=== PATIENT | female | born 1935 | race Caucasian/White ===

== ENCOUNTER 2020-01-31 20:31 | Observation (INO) | payer MEDICARE, OTHER ==
[~2020-01-31] VITALS: Ht 149.9 cm; Wt 94.8 kg
[~2020-01-31 20:31] MED LIST: CHOL10002 PO; DOXE10 PO; FISH1000 PO; HCTZ; HYDRA25 PO; LEVSOD175 PO; LEVSOD25; LISI20; LISI20 PO; MULVITMIND PO; OMEP20ER PO; OXAP600
[2020-01-31] MEDS ORDERED: WARF1 PO (20:40)
[2020-01-31] MEDS ORDERED: Simvastatin10 MG PO (20:42)
[2020-01-31] MEDS ORDERED: TRAZ50 (20:42)
[2020-01-31] MEDS ORDERED: METO100ER PO (20:42)
[2020-01-31] MEDS ORDERED: MAGSULP TOP (20:43)
[2020-01-31 20:55] LABS: BASOPHILS ABSOLUTE AUTO 0.05 K/mm3 (0.00-0.23); BASOPHILS PERCENT AUTO 0 % (0-2); EOSINOPHILS ABSOLUTE AUTO 0.14 K/mm3 (0.00-0.68); EOSINOPHILS PERCENT AUTO 1 % (0-6); Hematocrit 41.4 % (33.0-51.0); IMMATURE GRAN ABSOLUTE AUTO 0.05 K/mm3 (0.00-0.10); IMMATURE GRAN PERCENT AUTO 0 % (0-1); LYMPHOCYTES ABSOLUTE AUTO 4.85 K/mm3 (0.84-5.20); LYMPHOCYTES PERCENT AUTO 39 % (21-46); MONOCYTES ABSOLUTE AUTO 0.82 K/mm3 (0.16-1.47); MONOCYTES PERCENT AUTO 7 % (4-13); Mean Corpuscular HGB Conc 31.4 g/dL (31.5-36.5); Mean Corpuscular Volume 96 fL (80-100); Mean Platelet Volume 12.2 fL (9.1-12.4); NEUTROPHILS ABSOLUTE AUTO 6.49 K/mm3 (1.96-9.15); NEUTROPHILS PERCENT AUTO 52 % (41-73); Platelet Count 231 K/mm3 (150-400); RDW Coefficient Variation 13.4 % (11.7-14.2); RDW Standard Deviation 47.7 fL (35.1-46.3); Red Blood Cell Count 4.33 M/mm3 (3.80-5.20)
[2020-01-31 21:10] LABS: International Normalized Ratio 1.64; Prothrombin Time Results 17.1 Sec (9.7-11.5)
[2020-01-31 21:20] LABS: Alanine Aminotransfer (ALT/SGP 19 U/L (12-78); Albumin, Blood 3.4 g/dL (3.4-5.0); Albumin/Globulin Ratio 0.8 (0.8-1.8); Alk Phos 103 U/L (50-136); Anion Gap 7 mmol/L (6-16); Aspartate Aminotrans (AST/SGOT 37 U/L (12-37); Bilirubin, Total 0.5 mg/dL (0.1-1.0); Blood Urea Nitrogen 24 mg/dL (8-24); Bun/Creatinine Ratio 21.2 (12.0-20.0); CO2, Blood 25 mmol/L (21-32); Calcium, Blood 9.3 mg/dL (8.5-10.1); Chloride, Blood 105 mmol/L (98-108); Creatinine, Blood 1.13 mg/dL (0.40-1.00); Globulin, Blood 4.5 g/dL (2.2-4.0); Glomerular Filtration Rate 49 (60-); Glucose, Blood 92 mg/dL (70-99); Potassium, Blood 5.7 mmol/L (3.5-5.5); Sodium, Blood 137 mmol/L (136-145); Total Protein, Blood 7.9 g/dL (6.4-8.2); Troponin I <0.015 ng/mL (0.000-0.040)
[2020-01-31 22:53] LABS: Magnesium, Blood 2.6 mg/dL (1.6-2.4)
[2020-01-31 23:18] LABS: Bun/Creatinine Ratio 22.4 (12.0-20.0); Calcium, Blood 8.7 mg/dL (8.5-10.1); Creatinine, Blood 1.07 mg/dL (0.40-1.00); Potassium, Blood 5.1 mmol/L (3.5-5.5)
[2020-02-01 05:29] LABS: BASOPHILS ABSOLUTE AUTO 0.05 K/mm3 (0.00-0.23); BASOPHILS PERCENT AUTO 0 % (0-2); EOSINOPHILS ABSOLUTE AUTO 0.01 K/mm3 (0.00-0.68); EOSINOPHILS PERCENT AUTO 0 % (0-6); Hematocrit 36.1 % (33.0-51.0); Hemoglobin 11.8 g/dL (11.5-16.0); IMMATURE GRAN ABSOLUTE AUTO 0.04 K/mm3 (0.00-0.10); IMMATURE GRAN PERCENT AUTO 0 % (0-1); LYMPHOCYTES ABSOLUTE AUTO 2.16 K/mm3 (0.84-5.20); LYMPHOCYTES PERCENT AUTO 18 % (21-46); MONOCYTES ABSOLUTE AUTO 0.95 K/mm3 (0.16-1.47); MONOCYTES PERCENT AUTO 8 % (4-13); Mean Corpuscular HGB 31.2 pg (26.0-34.0); Mean Corpuscular HGB Conc 32.7 g/dL (31.5-36.5); Mean Corpuscular Volume 96 fL (80-100); Mean Platelet Volume 11.8 fL (9.1-12.4); NEUTROPHILS ABSOLUTE AUTO 9.08 K/mm3 (1.96-9.15); NEUTROPHILS PERCENT AUTO 74 % (41-73); Platelet Count 198 K/mm3 (150-400); RDW Coefficient Variation 13.5 % (11.7-14.2); RDW Standard Deviation 47.7 fL (35.1-46.3); Red Blood Cell Count 3.78 M/mm3 (3.80-5.20); White Blood Cell Count 12.29 K/mm3 (4.00-11.30)
[2020-02-01 05:39] LABS: International Normalized Ratio 1.78; Prothrombin Time Results 18.4 Sec (9.7-11.5)
[2020-02-01 05:43] LABS: Albumin/Globulin Ratio 0.8 (0.8-1.8); Bilirubin, Total 0.5 mg/dL (0.1-1.0); Bun/Creatinine Ratio 20.6 (12.0-20.0); Calcium, Blood 8.8 mg/dL (8.5-10.1); Creatinine, Blood 1.02 mg/dL (0.40-1.00); Globulin, Blood 3.9 g/dL (2.2-4.0); Potassium, Blood 5.7 mmol/L (3.5-5.5); Total Protein, Blood 6.9 g/dL (6.4-8.2)
[2020-02-01 05:51] LABS: CPK Creatine Kinase 48 U/L (26-193); Troponin I <0.015 ng/mL (0.000-0.040)
--- NOTE | 2020-02-01 06:01 | NUR ---
SHIFT SUMMARY PT ARRIVED FROM ED VIA STRETCHER AND SELF TRANFERED TO BED APPROXIMATELY 2350; PT A&O X 4; VSS; STATED SHE WAS VERY TIRED; STATES HX OF AFIB; O2 SATS >93; PT AMBULATES FOR BRP W/ NO GAIT DISTURBANCES NOTED; ORIENTED TO UNIT SAFETY / PROTOCOL / CALL LIGHT; THIS AM HR INCREASED AND SUSTAINED 120'S - 130'S; NOTIFIED; NEW ORDERS GIVEN; REFER TO EMAR; CALL LIGHT IN REACH; BED IN LOWEST POSITION; WILL CONTINUE TO MONITOR CLOSELY UNTIL HAND OFF TO DAY SHIFT RN.
[2020-02-01] MEDS ORDERED: LEVOTHYROXINE112 MCG (07:54)
[2020-02-01 12:55] LABS: Bun/Creatinine Ratio 19.2 (12.0-20.0); Creatinine, Blood 0.99 mg/dL (0.40-1.00); Potassium, Blood 5.7 mmol/L (3.5-5.5)
[2020-02-01 13:05] LABS: CPK Creatine Kinase 176 U/L (26-193); Troponin I <0.015 ng/mL (0.000-0.040)
[2020-02-01] MEDS ORDERED: AMLO5 PO (16:48)
[2020-02-01 17:12] LABS: Bun/Creatinine Ratio 17.1 (12.0-20.0); Calcium, Blood 9.1 mg/dL (8.5-10.1); Creatinine, Blood 1.17 mg/dL (0.40-1.00); Potassium, Blood 4.2 mmol/L (3.5-5.5)
--- NOTE | 2020-02-01 17:17 | NUR ---
PATIENT PROVIDED DISCHARGE INFO REGARDING REASONS TO RETURN TO THE HOSPITAL, FOLLOW UP PLANS AND MEDICATION INFORMATION. THIS RN EDUCATED THE PATIENT ON THE RISKS OF ELEVATED POTASSIUM LEVEL INCLUDING ARRHYTHMIA AND CARDIAC ARREST. PATIENT SHOWED NO SIGNS OF ACUTE DISTRESS, DENIED CHEST PAIN THIS SHIFT. DR. LITTLE STATED IT WAS OK TO DISCHARGE PATIENT BEFORE MOST UP TO DATE K+ RESULT WAS IN. THIS RN ENCOURAGED PATIENT TO WAIT TO LEAVE UNTIL LATEST K+ LEVEL AVAILABLE, PATIENT STATED SHE WANTED TO LEAVE REGARDLESS. THIS RN OFFERED TO CALL PATIENT WHEN LAB RESULT IS IN, STATED THAT PATIENT WOULD BE INSTRUCTED TO RETURN TO THE ER IF POTASSIUM LEVEL ELEVATED OUTSIDE OF NORMAL RANGE. LATEST LAB RESULT AFTER PATIENT LEFT WAS 4.2. ATTEMPTED TO CALL THE PATIENT, NO ANSWER AT THE PATIENT'S LISTED PHONE NUMBER. ATTEMPTED TO CALL THE PATIENT'S DAUGHTER AT THE NUMBER ON CHART, WENT STRAIGHT TO VOICEMAIL. PRIOR TO DISCHARGE THIS RN ENCOURAGED PATIENT TO SIGN UP FOR THE PATIENT PORTAL IN ORDER TO VIEW INFORMATION FROM THIS ADMISSION.
== END 2020-02-01 17:05 | disposition home or self-care (01) ==
LOC: ER 20:31 → PCU 20:32
PROVIDERS: Emergency Medicine; Internal Medicine; ADMIT Internal Medicine
DX: I48.91 Unspecified atrial fibrillation (principal); E87.5 Hyperkalemia; I12.9 Hypertensive chronic kidney disease with stage 1 through stage 4 chronic kidney disease, or unspecified chronic kidney disease; N18.30 Chronic kidney disease, stage 3 unspecified; I77.4 Celiac artery compression syndrome; E03.9 Hypothyroidism, unspecified; M19.90 Unspecified osteoarthritis, unspecified site; K21.9 Gastro-esophageal reflux disease without esophagitis; E78.5 Hyperlipidemia, unspecified; Z79.01 Long term (current) use of anticoagulants; Z79.899 Other long term (current) drug therapy; Z91.14 Patient's other noncompliance with medication regimen; Z23 Encounter for immunization
CPT/HCPCS: 36415; 71045; 71275; 74175; 80048; 80053; 82550; 82947; 83735; 83880; 84484; 85025; 85610; 85730; 93005; 93010; 96374-59; 96375-59; 99285-25; A9270; J0610; J1815; J1940; J2405; J3010; J7030; Q9967

== ENCOUNTER 2020-03-17 21:04 | Inpatient (IN) | payer MEDICARE, OTHER ==
[~2020-03-17] VITALS: Ht 149.9 cm; Wt 91.8 kg
[~2020-03-17 21:04] MED LIST changes: +AMLO5 PO; -CHOL10002 PO; +LEVOTHYROXINE112 MCG PO; +MAGSULP TOP; +METO100ER PO; +Simvastatin10 MG PO; +TRAZ50 PO; +VITAMIN D31000 UNI1 PO; +WARF1 PO
[2020-03-17 22:00] LABS: BASOPHILS ABSOLUTE AUTO 0.06 K/mm3 (0.00-0.23); BASOPHILS PERCENT AUTO 1 % (0-2); EOSINOPHILS ABSOLUTE AUTO 0.17 K/mm3 (0.00-0.68); EOSINOPHILS PERCENT AUTO 2 % (0-6); Hematocrit 41.7 % (33.0-51.0); Hemoglobin 13.1 g/dL (11.5-16.0); IMMATURE GRAN ABSOLUTE AUTO 0.03 K/mm3 (0.00-0.10); IMMATURE GRAN PERCENT AUTO 0 % (0-1); LYMPHOCYTES ABSOLUTE AUTO 2.23 K/mm3 (0.84-5.20); LYMPHOCYTES PERCENT AUTO 28 % (21-46); MONOCYTES ABSOLUTE AUTO 0.42 K/mm3 (0.16-1.47); MONOCYTES PERCENT AUTO 5 % (4-13); Mean Corpuscular HGB 29.8 pg (26.0-34.0); Mean Corpuscular HGB Conc 31.4 g/dL (31.5-36.5); Mean Corpuscular Volume 95 fL (80-100); Mean Platelet Volume 11.6 fL (9.1-12.4); NEUTROPHILS ABSOLUTE AUTO 4.95 K/mm3 (1.96-9.15); NEUTROPHILS PERCENT AUTO 63 % (41-73); Platelet Count 206 K/mm3 (150-400); RDW Coefficient Variation 13.7 % (11.7-14.2); RDW Standard Deviation 48.3 fL (35.1-46.3); Red Blood Cell Count 4.39 M/mm3 (3.80-5.20); White Blood Cell Count 7.86 K/mm3 (4.00-11.30)
[2020-03-17 22:17] LABS: Alanine Aminotransfer (ALT/SGP 17 U/L (12-78); Albumin, Blood 3.2 g/dL (3.4-5.0); Albumin/Globulin Ratio 0.7 (0.8-1.8); Alk Phos 101 U/L (50-136); Anion Gap 6 mmol/L (6-16); Aspartate Aminotrans (AST/SGOT 14 U/L (12-37); Bilirubin, Total 0.3 mg/dL (0.1-1.0); Blood Urea Nitrogen 14 mg/dL (8-24); Bun/Creatinine Ratio 17.5 (12.0-20.0); CO2, Blood 23 mmol/L (21-32); Calcium, Blood 9.2 mg/dL (8.5-10.1); Chloride, Blood 111 mmol/L (98-108); Globulin, Blood 4.4 g/dL (2.2-4.0); Glomerular Filtration Rate >60 (60-); Glucose, Blood 118 mg/dL (70-99); Potassium, Blood 3.9 mmol/L (3.5-5.5); Sodium, Blood 140 mmol/L (136-145); Total Protein, Blood 7.6 g/dL (6.4-8.2); Troponin I <0.015 ng/mL (0.000-0.040)
[2020-03-17 23:56] LABS: International Normalized Ratio 2.69; Prothrombin Time Results 27.2 Sec (9.7-11.5)
--- NOTE | 2020-03-18 03:09 | NUR ---
PATIENT IS A NEW ADMIT FROM THE ED. FOUR PERSON TRANSFER FROM [facility] TO BED. AXOX 4 AND ON 3L O2 NC AND RA BASELINE. PATIENT ANXIOUS ON ADMIT. ORIENTED TO ROOM AND CALL LIGHT SYSTEM. REPORTS WANTED HER TRAZODONE FOR INSOMNIA. DENIES CHEST PAIN AND N/V. PATIENT READY FOR SLEEP.
--- NOTE | 2020-03-18 03:13 | NUR ---
TELEMETRY PLACED AND TECH REPORTS A-FIB AVERAGE IN THE 80'S. RT IN TO SEE PATIENT AND REFUSING CPAP AND SIGNED REFUSAL FORM, IN CHART. REPORTS HER DAUGHTER WILL BE IN TOMORROW AFTERNOON.
--- NOTE | 2020-03-18 04:59 | NUR ---
SHIFT SUMMARY PATIENT HAD NO ACUTE CHANGES OBSERVED. AXOX 4 AND ANXIOUS ON ADMIT. SBA TO BR ON 3L O2 NC AND RA BASELINE. RT REPORTED SHE REFUSED HER CPAP AND SIGNED REFUSAL FORM AND IN CHART. PIVS REMAIN INTACT. NURSE REVIEWER REPORTS A-FIB AVERAGE 80'S. DENIES CHEST PAIN AND N/V. SOB W/EXERTION. TAKES MEDICATION WHOLE WITH WATER. TRAZODONE 50 MG GIVEN FOR INSOMNIA. VSS/AFEBRILE. REPORTS LIVES WITH HER DAUGHTER WHO WILL BE BACK THIS AFTERNOON. CALL LIGHT IN REACH. BED IN LOWEST POSITION. WILL CONTINUE TO MONITOR UNTIL DAY SHIFT NURSE ASSUMES CARE.
[2020-03-18] MEDS ORDERED: FOLI1 PO (07:33)
[2020-03-18] MEDS ORDERED: HYDRA25 PO (07:34)
[2020-03-18] MEDS ORDERED: LISI20 PO (07:35)
[2020-03-18] MEDS ORDERED: Coumadin1 MG PO (07:40)
[2020-03-18] MEDS ORDERED: Coumadin5 MG PO (07:41)
[2020-03-18 11:25] LABS: Influenza A, PCR NEGATIVE (NEGATIVE); Influenza B, PCR NEGATIVE (NEGATIVE); Resp Syncytial Virus, PCR NEGATIVE (NEGATIVE); SARS-Cov-2 (COVID-19) PCR, MMC NEGATIVE (NEGATIVE)
--- NOTE | 2020-03-18 15:31 | NUR ---
0930 turned o2 down to 2l , pt [facility] , o2 >96% 1500 turned o2 down to 1l. pt [facility]. o2 94%
--- NOTE | 2020-03-18 17:07 | NUR ---
ADMIT: 03/18/20 DISCHARGE: DX: respiratory failure CC: [email or web address] ADMIT: 01/31/20 DISCHARGE:02/01/20 DX: Chest pain CC: kwilcx THA CALL: pt at home RESIDENCE: home CAREGIVER: self DX: Afib, CKD, FRANKLYN, hyperlipidemia, murmur, see list DME: CPAP CCM: none HOME HEALTH: none SUMMARY: admit 03/18/20 03/18/20 Dayanna being seen by Dr Gonzales, no ETA for discharge at this time. cp 03/18/20 IMPRESSION: 1. Acute hypoxic respiratory failure in the setting of bilateral pneumonia. We will put the patient on Rocephin and Zithromax and BD protocol.
--- NOTE | 2020-03-18 17:30 | NUR ---
PT PLEASANT TODAY. STATES NOT MUCH APPETITE TODAY. STATES IS FINALLY MORE INTERESTED FOR DINNER. LUNGS CLEAR TODAY. TURNED O2 DOWN TO 1L TODAY. O2 SATS MAINTAINING > 94%. NO C/O PAIN. SISTER IN TO VISIT TODAY. NO NEW CONCERNS AT THIS TIME. BED IN LOW POSITION, CALL LITE IN REACH, CALLS APPROP
[2020-03-19 05:33] LABS: BASOPHILS ABSOLUTE AUTO 0.04 K/mm3 (0.00-0.23); BASOPHILS PERCENT AUTO 1 % (0-2); EOSINOPHILS ABSOLUTE AUTO 0.19 K/mm3 (0.00-0.68); EOSINOPHILS PERCENT AUTO 3 % (0-6); Hematocrit 36.3 % (33.0-51.0); IMMATURE GRAN ABSOLUTE AUTO 0.01 K/mm3 (0.00-0.10); IMMATURE GRAN PERCENT AUTO 0 % (0-1); LYMPHOCYTES ABSOLUTE AUTO 1.99 K/mm3 (0.84-5.20); LYMPHOCYTES PERCENT AUTO 31 % (21-46); MONOCYTES ABSOLUTE AUTO 0.55 K/mm3 (0.16-1.47); MONOCYTES PERCENT AUTO 9 % (4-13); Mean Corpuscular HGB 29.6 pg (26.0-34.0); Mean Corpuscular HGB Conc 30.3 g/dL (31.5-36.5); Mean Corpuscular Volume 98 fL (80-100); Mean Platelet Volume 11.8 fL (9.1-12.4); NEUTROPHILS ABSOLUTE AUTO 3.64 K/mm3 (1.96-9.15); NEUTROPHILS PERCENT AUTO 57 % (41-73); Platelet Count 196 K/mm3 (150-400); RDW Coefficient Variation 13.9 % (11.7-14.2); RDW Standard Deviation 49.7 fL (35.1-46.3); Red Blood Cell Count 3.71 M/mm3 (3.80-5.20); White Blood Cell Count 6.42 K/mm3 (4.00-11.30)
--- NOTE | 2020-03-19 05:39 | NUR ---
HANDLE BENDER SUMMARY NO ACUTE CHANGES THIS SHIFT. PT AAOX4 AND PLEASANT. INDEPENDENT TO THE BATHROOM. PT STATES BREATHING IS MUCH IMPROVED BUT DOES REPORT SOME MINIMAL SOB ON EXERTION. ON 1L O2 VIA NC. VSS, WILL CONTINUE TO MONITOR.
[2020-03-19 05:47] LABS: International Normalized Ratio 3.19
[2020-03-19 05:48] LABS: Anion Gap 6 mmol/L (6-16); Blood Urea Nitrogen 15 mg/dL (8-24); Bun/Creatinine Ratio 17.1 (12.0-20.0); CO2, Blood 27 mmol/L (21-32); Chloride, Blood 110 mmol/L (98-108); Creatinine, Blood 0.88 mg/dL (0.40-1.00); Glomerular Filtration Rate >60 (60-); Glucose, Blood 85 mg/dL (70-99); Potassium, Blood 3.9 mmol/L (3.5-5.5); Sodium, Blood 143 mmol/L (136-145)
--- NOTE | 2020-03-19 17:37 | NUR ---
03/19/20 Dayanna being seen by Dr Cardona, pt ot noting discharge possible Wednesday. OT recommends home, homehealth, partime care. PT recommends home, partime care. possible need for home . I will continue to follow for discharge planning. cp
--- NOTE | 2020-03-19 18:41 | NUR ---
SHIFT SUMMARY PT AxOx4. PLEASANT AND COOPERATIVE WITH CARE. DR JAMES BOYKIN TODAY. PT C/O FREQUENT URINATION. INDEPENDENT IN THE ROOM. DYSPNEA UPON EXERTION. PT ON 1-2L O2 T/O THE DAY. RT AND OT WORKED WITH PATIENT TODAY. GOOD APPETITE. FLUID RESTRICTION 1000ML STARTED TODAY. TELE RUNNING AFIB 80-90S. VITALS REVIEWED. PT HAD DAUGHTER VISIT TODAY. CURRENTLY RESTING IN BED EATING DINNER. DENIES ANY NEEDS AT THIS TIME. CALL LIGHT IN REACH.
--- NOTE | 2020-03-20 04:44 | NUR ---
SHIFT SUMMARY NO ACUTE CHANGES THIS SHIFT. PT IS A&O X4 AND IND IN ROOM. CALLS APPROPRATELY. PT HAD ONE EPISODE OF DYSPENIA WITH EXERTION. WAS ABLE TO MAINTAIN O2 SAT OF 92% ON 1L. PT SLEPT WELL T/O NIGHT, MEDICATED FOR PAIN X1. PT IS LAYING IN BED WITH EYES CLOSED, EVEN AND UNLABORED RESPIRATIONS. BED IN LOWERED POSITION WITH SIDE RAILS UP X2 FOR SAFETY. CALL LIGHT AND PERSONAL ITEMS WITH IN REACH. NO APPARENT NEEDS OR DISTRESS AT THIS TIME, WILL CONTINUE TO MONITOR UNTIL REPORT GIVEN TO DAY RN.
[2020-03-20 05:21] LABS: BASOPHILS ABSOLUTE AUTO 0.05 K/mm3 (0.00-0.23); BASOPHILS PERCENT AUTO 1 % (0-2); EOSINOPHILS ABSOLUTE AUTO 0.21 K/mm3 (0.00-0.68); EOSINOPHILS PERCENT AUTO 3 % (0-6); Hematocrit 39.9 % (33.0-51.0); Hemoglobin 12.4 g/dL (11.5-16.0); IMMATURE GRAN ABSOLUTE AUTO 0.01 K/mm3 (0.00-0.10); IMMATURE GRAN PERCENT AUTO 0 % (0-1); LYMPHOCYTES ABSOLUTE AUTO 2.38 K/mm3 (0.84-5.20); LYMPHOCYTES PERCENT AUTO 32 % (21-46); MONOCYTES ABSOLUTE AUTO 0.64 K/mm3 (0.16-1.47); MONOCYTES PERCENT AUTO 9 % (4-13); Mean Corpuscular HGB Conc 31.1 g/dL (31.5-36.5); Mean Corpuscular Volume 96 fL (80-100); Mean Platelet Volume 12.7 fL (9.1-12.4); NEUTROPHILS ABSOLUTE AUTO 4.22 K/mm3 (1.96-9.15); NEUTROPHILS PERCENT AUTO 56 % (41-73); Platelet Count 210 K/mm3 (150-400); RDW Coefficient Variation 13.8 % (11.7-14.2); RDW Standard Deviation 48.8 fL (35.1-46.3); Red Blood Cell Count 4.14 M/mm3 (3.80-5.20); White Blood Cell Count 7.51 K/mm3 (4.00-11.30)
[2020-03-20 05:37] LABS: International Normalized Ratio 3.02; Prothrombin Time Results 30.4 Sec (9.7-11.5)
[2020-03-20 05:52] LABS: Albumin/Globulin Ratio 0.8 (0.8-1.8); Bilirubin, Total 0.6 mg/dL (0.1-1.0); Bun/Creatinine Ratio 16.4 (12.0-20.0); Calcium, Blood 9.6 mg/dL (8.5-10.1); Creatinine, Blood 0.98 mg/dL (0.40-1.00); Globulin, Blood 3.8 g/dL (2.2-4.0); Magnesium, Blood 1.9 mg/dL (1.6-2.4); Phosphorus, Blood 3.7 mg/dL (2.5-4.9); Potassium, Blood 3.7 mmol/L (3.5-5.5); Total Protein, Blood 6.8 g/dL (6.4-8.2)
[2020-03-20] MEDS ORDERED: Ropinirole HCl0.5 MG PO (09:33)
[2020-03-20] MEDS ORDERED: FURO40 PO (09:33)
[2020-03-20] MEDS ORDERED: SPIR25 PO (09:34)
--- NOTE | 2020-03-20 16:58 | NUR ---
03/20/20 Discharged home, met with daughter and Dayanna, Daughter is a INTERNET RESEARCHER but is home with her mom 24 hours a day. Discussed home oxygen 1 l/m ex, Najma provided portable. no home health needed, patient is not homebound. Micah to call Th or Fri for follow appointment. Did not identify any addtional care needs at this time. Gave her caleb letter from Micah re: d/c instruct. cp
--- NOTE | 2020-03-20 17:11 | NUR ---
PT WAS DISCHARGED WITH FAMILY AND BELONGINGS AT SIDE. PT MADE NO COMPLAINTS OF SOB AT THE TIME OF DC AND HAD 1L O2 VIA NC RUNNING FOR HOME USE. PT IV LINE WAS DC'D AND WNL, WAS EDUCATED ON NEW MEDICATIONS, FOLLOW UP APPOINTMENTS NEEDED AND SS TO WATCH OUT FOR. PT WAS ABLE TO VERBALIZE UNDERSTANDING.
[2020-03-27] MEDS ORDERED: LEVSOD112 PO (16:10)
== END 2020-03-20 16:59 | disposition home or self-care (01) | DRG 291 ==
LOC: ER 21:04 → MEDS 03-18 01:26
PROVIDERS: Emergency Medicine; Family Medicine; Hospitalist; Internal Medicine; Physician Assistant; ADMIT Family Medicine
DX: I11.0 Hypertensive heart disease with heart failure (principal); J96.01 Acute respiratory failure with hypoxia; I50.31 Acute diastolic (congestive) heart failure; J18.9 Pneumonia, unspecified organism; I77.4 Celiac artery compression syndrome; Z68.41 Body mass index [BMI] 40.0-44.9, adult; I48.91 Unspecified atrial fibrillation; Z20.822 Contact with and (suspected) exposure to COVID-19; I35.0 Nonrheumatic aortic (valve) stenosis; G25.81 Restless legs syndrome; G47.33 Obstructive sleep apnea (adult) (pediatric); E78.5 Hyperlipidemia, unspecified; E03.9 Hypothyroidism, unspecified; M19.90 Unspecified osteoarthritis, unspecified site; E66.01 Morbid (severe) obesity due to excess calories; G47.00 Insomnia, unspecified; Z87.891 Personal history of nicotine dependence; Z79.01 Long term (current) use of anticoagulants
CPT/HCPCS: 0241U; 36415; 71046; 71260; 80048; 80053; 83605; 83735; 83880; 84100; 84145; 84484; 85025; 85610; 85730; 87040; 93005; 93010; 93306; 94761; 96365; 96367; 97116; 97161; 97166; 97530; 97535; 99285-25; A9270; J0456; J0696; J1940; J7050; Q9967

== ENCOUNTER 2020-03-28 07:44 | Day surgery (SDC) | payer MEDICARE, OTHER ==
[~2020-03-28] VITALS: Ht 149.9 cm; Wt 89.0 kg
[~2020-03-28 07:44] MED LIST changes: +Coumadin1 MG PO; +Coumadin5 MG PO; +FOLI1 PO; +FURO40 PO; +LEVSOD112 PO; +Ropinirole HCl0.5 MG PO; +SPIR25 PO
[2020-03-28 08:51] LABS: International Normalized Ratio 1.36; Prothrombin Time Results 14.3 Sec (9.7-11.5)
--- NOTE | 2020-03-28 10:20 | NUR ---
PT TO RECOVERY ROOM POST PROCEDURE. PT AWAKE AND CONVERSING APPROPRIATELY; DENIES CHEST PAIN POST PROCEDURE. MONITOR AFIB 70-80'S, B/P 94/53, AFEBRILE, SPO2 93% RA. R RADIAL SITE NO SWELLING/HEMATOMA, TR BAND IN PLACE; POSITIVE PLEUTH. PT TAKING BREAKFAST WITHOUT ISSUE.
--- NOTE | 2020-03-28 11:05 | NUR ---
PT AMB TO BATHROOM, SITE UNCHANGED WITH ACTIVITY.
--- NOTE | 2020-03-28 11:35 | NUR ---
PT'S B/P RUNNING 80'S/50'S, ASYMPTOMATIC, DR ASIF NOTIFIED; ORDERS RECEIVED. PT RECEIVING ADDITIONAL 7OOCC NS.
--- NOTE | 2020-03-28 11:45 | NUR ---
DR ASIF IN TO EVALUATE PT.
--- NOTE | 2020-03-28 13:00 | NUR ---
PT AMB TO BATHROOM, GAIT STEADY, VOIDED QS. PT DRESSED SELF WITHOUT ISSUE, SITE UNCHANGED. TR BAND REMOVED CLOTH DOT, WRIST IMMOBILIZER AND SLING PLACED PER PT REQUEST; IV REMOVED-CANNULA INTACT. PT INSTRUCTED ON SITE MANAGEMENT; VERALIZED GOOD UNDERSTANDING.
--- NOTE | 2020-03-28 13:15 | NUR ---
PT AND DAUGHTER RECEIVED DISCHARGE INSTRUCTIONS, MED LIST AND AFTER CARE INSTRUCTIONS; VERBALIZED GOOD UNDERSTANDING. PT LEFT FACILITY VIA W/C, CONDITION STABLE.
== END 2020-03-28 13:15 | disposition home or self-care (01) ==
LOC: MHTC 07:44
PROVIDERS: Emergency Medicine
DX: I35.0 Nonrheumatic aortic (valve) stenosis (principal); I50.9 Heart failure, unspecified; I10 Essential (primary) hypertension; I48.20 Chronic atrial fibrillation, unspecified; E78.5 Hyperlipidemia, unspecified; E03.9 Hypothyroidism, unspecified; Z79.01 Long term (current) use of anticoagulants
CPT/HCPCS: 76937; 85610; 93458; 99152; C1769; C1894; J1644; J2250; J3010; J7030; J7050; Q9967

== ENCOUNTER 2021-05-10 12:40 | Inpatient (IN) | payer MEDICARE, OTHER ==
[~2021-05-10] VITALS: Ht 149.9 cm; Wt 87.7 kg
[2021-05-10 13:31] LABS: BASOPHILS ABSOLUTE AUTO 0.03 K/mm3 (0.00-0.23); BASOPHILS PERCENT AUTO 0 % (0-2); EOSINOPHILS ABSOLUTE AUTO 0.03 K/mm3 (0.00-0.68); EOSINOPHILS PERCENT AUTO 0 % (0-6); Hematocrit 40.3 % (33.0-51.0); Hemoglobin 12.8 g/dL (11.5-16.0); IMMATURE GRAN ABSOLUTE AUTO 0.04 K/mm3 (0.00-0.10); IMMATURE GRAN PERCENT AUTO 0 % (0-1); LYMPHOCYTES ABSOLUTE AUTO 1.17 K/mm3 (0.84-5.20); LYMPHOCYTES PERCENT AUTO 13 % (21-46); MONOCYTES PERCENT AUTO 9 % (4-13); Mean Corpuscular HGB Conc 31.8 g/dL (31.5-36.5); Mean Corpuscular Volume 91 fL (80-100); Mean Platelet Volume 11.8 fL (9.1-12.4); NEUTROPHILS ABSOLUTE AUTO 7.23 K/mm3 (1.96-9.15); NEUTROPHILS PERCENT AUTO 78 % (41-73); Platelet Count 202 K/mm3 (150-400); RDW Coefficient Variation 14.9 % (11.7-14.2); RDW Standard Deviation 50.4 fL (35.1-46.3); Red Blood Cell Count 4.41 M/mm3 (3.80-5.20)
[2021-05-10 13:42] LABS: International Normalized Ratio 1.82; Prothrombin Time Results 18.4 Sec (9.7-11.5)
[2021-05-10 13:49] LABS: Alanine Aminotransfer (ALT/SGP 12 U/L (12-78); Albumin, Blood 2.9 g/dL (3.4-5.0); Albumin/Globulin Ratio 0.6 (0.8-1.8); Alk Phos 82 U/L (50-136); Anion Gap 5 mmol/L (6-16); Aspartate Aminotrans (AST/SGOT 12 U/L (12-37); Bilirubin, Total 1.1 mg/dL (0.1-1.0); Blood Urea Nitrogen 13 mg/dL (8-24); Bun/Creatinine Ratio 14.8 (12.0-20.0); CO2, Blood 26 mmol/L (21-32); Calcium, Blood 9.6 mg/dL (8.5-10.1); Chloride, Blood 106 mmol/L (98-108); Creatinine, Blood 0.88 mg/dL (0.40-1.00); Globulin, Blood 4.6 g/dL (2.2-4.0); Glomerular Filtration Rate >60 (60-); Glucose, Blood 108 mg/dL (70-99); Potassium, Blood 3.7 mmol/L (3.5-5.5); Sodium, Blood 137 mmol/L (136-145); Total Protein, Blood 7.5 g/dL (6.4-8.2)
[2021-05-10] MEDS ORDERED: ATOR10 PO (15:07)
[2021-05-10] MEDS ORDERED: FUROSEMIDE40 MG PO (15:08)
[2021-05-10] MEDS ORDERED: EUTHYROX112 MCG PO (15:10)
[2021-05-10] MEDS ORDERED: METO50ER PO (15:11)
[2021-05-10] MEDS ORDERED: ROPI.25 PO (15:12)
[2021-05-10] MEDS ORDERED: ALDACTONE25 MG PO (15:13)
[2021-05-10] MEDS ORDERED: TRAZ100 PO (15:15)
[2021-05-10] MEDS ORDERED: Coumadin5 MG PO (15:16)
[2021-05-10 15:24] LABS: Influenza A, PCR NEGATIVE (NEGATIVE); Influenza B, PCR NEGATIVE (NEGATIVE); Resp Syncytial Virus, PCR NEGATIVE (NEGATIVE); SARS-Cov-2 (COVID-19) PCR, MMC NEGATIVE (NEGATIVE)
--- NOTE | 2021-05-10 17:54 | NUR ---
SHIFT SUMMARY PT ARRIVED TO UNIT AT ABOUT 1615. PT ABLE TO STAND AND TRANSFER TO BED WITH MINIMAL ASSISTANCE. PT REMAINS ALERT AND ORIENTED. O2 SATS REMAIN ABOVE 90% ON RA. PT USES CPAP AT NIGHT AND DAUGHTER TO BRING IN HOME CPAP. BP STABLE. HR AFIB 110-120 AT THIS TIME. DILTIAZEM GTT INFUSING AT 5ML/HR. PT DENIES ANY PAIN. PT SITTING UP EATING DINNER. WILL CONTINUE TO MONITOR AND REPORT TO ONCOMING RN
[2021-05-11 05:09] LABS: BASOPHILS ABSOLUTE AUTO 0.04 K/mm3 (0.00-0.23); BASOPHILS PERCENT AUTO 1 % (0-2); EOSINOPHILS ABSOLUTE AUTO 0.15 K/mm3 (0.00-0.68); EOSINOPHILS PERCENT AUTO 2 % (0-6); Hematocrit 37.2 % (33.0-51.0); Hemoglobin 11.8 g/dL (11.5-16.0); IMMATURE GRAN ABSOLUTE AUTO 0.03 K/mm3 (0.00-0.10); IMMATURE GRAN PERCENT AUTO 0 % (0-1); LYMPHOCYTES ABSOLUTE AUTO 1.98 K/mm3 (0.84-5.20); LYMPHOCYTES PERCENT AUTO 23 % (21-46); MONOCYTES ABSOLUTE AUTO 0.84 K/mm3 (0.16-1.47); MONOCYTES PERCENT AUTO 10 % (4-13); Mean Corpuscular HGB 28.9 pg (26.0-34.0); Mean Corpuscular HGB Conc 31.7 g/dL (31.5-36.5); Mean Corpuscular Volume 91 fL (80-100); Mean Platelet Volume 11.4 fL (9.1-12.4); NEUTROPHILS ABSOLUTE AUTO 5.77 K/mm3 (1.96-9.15); NEUTROPHILS PERCENT AUTO 66 % (41-73); Platelet Count 193 K/mm3 (150-400); RDW Coefficient Variation 14.9 % (11.7-14.2); Red Blood Cell Count 4.08 M/mm3 (3.80-5.20); White Blood Cell Count 8.81 K/mm3 (4.00-11.30)
[2021-05-11 05:25] LABS: International Normalized Ratio 2.32; Prothrombin Time Results 23.1 Sec (9.7-11.5)
[2021-05-11 05:42] LABS: Alanine Aminotransfer (ALT/SGP 9 U/L (12-78); Albumin, Blood 2.6 g/dL (3.4-5.0); Albumin/Globulin Ratio 0.6 (0.8-1.8); Alk Phos 82 U/L (50-136); Anion Gap 7 mmol/L (6-16); Aspartate Aminotrans (AST/SGOT 14 U/L (12-37); Bilirubin, Total 0.8 mg/dL (0.1-1.0); Blood Urea Nitrogen 12 mg/dL (8-24); Bun/Creatinine Ratio 15.6 (12.0-20.0); CO2, Blood 24 mmol/L (21-32); Calcium, Blood 9.3 mg/dL (8.5-10.1); Chloride, Blood 107 mmol/L (98-108); Creatinine, Blood 0.77 mg/dL (0.40-1.00); Globulin, Blood 4.5 g/dL (2.2-4.0); Glomerular Filtration Rate >60 (60-); Glucose, Blood 121 mg/dL (70-99); Potassium, Blood 3.3 mmol/L (3.5-5.5); Sodium, Blood 138 mmol/L (136-145); Total Protein, Blood 7.1 g/dL (6.4-8.2)
--- NOTE | 2021-05-11 07:07 | NUR ---
SHIFT SUMMARY PT SLEPT INTERMITTENTLY OVERNIGHT, ORIENTED X4, AFIB IN 100S-110S AT REST AND 140S-160S WITH ACTIVITY. OTHER VSS. DYSPNEA WITH ACTIVITY. CARDIZEM GTT @5ML/HR OVERNIGHT. ON RA WHEN AWAKE AND CPAP WHEN SLEEPING. ADEQUATE UOP. NO COMPLAINTS OF PAIN. WILL MONITOR AND PASS ON TO DAY RN.
--- NOTE | 2021-05-11 16:53 | NUR ---
SHIFT SUMMARY PT REMAINS ALERT AND ORIENTED. BP STABLE. O2 SATS REMAIN ABOVE 90% ON RA. HR AFIB WITH RATE IN THE 90'S AT REST. DILTIAZEM GTT STOPPED AT APPROXIMATELY 1330 THIS SHIFT. PT DENIES ANY PAIN. PT UP TO THE BATHROOM FREQUENTLY TO VOID WITH A SBA. NS INFUSING PER ODERS. POSITIVE BLOOD CULTURES NOTED TODAY AND DR. RODRIGUEZ PLACED NEW ORDERS FOR ANTIBIOTIC CHANGES. WILL CONTINUE TO MONITOR AND REPORT TO ONCOMING RN
[2021-05-12 04:22] LABS: International Normalized Ratio 3.2; Prothrombin Time Results 31.1 Sec (9.7-11.5)
--- NOTE | 2021-05-12 06:05 | NUR ---
End of shift summary Overnight went well, VSS, tachy while ambulating(130- 140s) and HR goes back down once in bed, no s/s with this, will monitor CECY Escamilla
[2021-05-12 08:56] LABS: BASOPHILS ABSOLUTE AUTO 0.04 K/mm3 (0.00-0.23); BASOPHILS PERCENT AUTO 1 % (0-2); EOSINOPHILS ABSOLUTE AUTO 0.18 K/mm3 (0.00-0.68); EOSINOPHILS PERCENT AUTO 2 % (0-6); Hematocrit 37.9 % (33.0-51.0); Hemoglobin 12.3 g/dL (11.5-16.0); IMMATURE GRAN ABSOLUTE AUTO 0.02 K/mm3 (0.00-0.10); IMMATURE GRAN PERCENT AUTO 0 % (0-1); LYMPHOCYTES PERCENT AUTO 24 % (21-46); MONOCYTES PERCENT AUTO 8 % (4-13); Mean Corpuscular HGB 29.1 pg (26.0-34.0); Mean Corpuscular HGB Conc 32.5 g/dL (31.5-36.5); Mean Corpuscular Volume 90 fL (80-100); Mean Platelet Volume 11.8 fL (9.1-12.4); NEUTROPHILS PERCENT AUTO 65 % (41-73); Platelet Count 230 K/mm3 (150-400); RDW Coefficient Variation 14.9 % (11.7-14.2); RDW Standard Deviation 49.4 fL (35.1-46.3); Red Blood Cell Count 4.22 M/mm3 (3.80-5.20); White Blood Cell Count 7.64 K/mm3 (4.00-11.30)
[2021-05-12 09:22] LABS: Alanine Aminotransfer (ALT/SGP 15 U/L (12-78); Albumin, Blood 2.7 g/dL (3.4-5.0); Albumin/Globulin Ratio 0.6 (0.8-1.8); Alk Phos 81 U/L (50-136); Anion Gap 6 mmol/L (6-16); Aspartate Aminotrans (AST/SGOT 18 U/L (12-37); Bilirubin, Total 0.6 mg/dL (0.1-1.0); Blood Urea Nitrogen 10 mg/dL (8-24); Bun/Creatinine Ratio 12.8 (12.0-20.0); CO2, Blood 25 mmol/L (21-32); Calcium, Blood 9.8 mg/dL (8.5-10.1); Chloride, Blood 104 mmol/L (98-108); Creatinine, Blood 0.78 mg/dL (0.40-1.00); Globulin, Blood 4.5 g/dL (2.2-4.0); Glomerular Filtration Rate >60 (60-); Glucose, Blood 136 mg/dL (70-99); Potassium, Blood 3.3 mmol/L (3.5-5.5); Sodium, Blood 135 mmol/L (136-145); Total Protein, Blood 7.2 g/dL (6.4-8.2)
--- NOTE | 2021-05-12 16:24 | NUR ---
SHIFT SUMMARY- Pt remains A&Ox4, intermittent confusion noted- can become aggressive/agitated. VSS with exception to HR- remains in Afib, Toprol XL dose increased and HR control has since improved. Afebrile. No c/o pain. AUO-pt continues to refuse BSC despite frequent re-education. No BM- pt c/o constipation (last BM 05/11/21), scheduled bowel regimen meds administered. Tolerating current diet. Frequent rounds to ensure pt safety. Encouraged pt to reposition frequently and offload pressure points to prevent pressure ulcers, pt verbalized understanding. Pt in no apparent distress at this time. Will continue to monitor until transfer of care to oncoming RN.
[2021-05-13 03:40] LABS: BASOPHILS ABSOLUTE AUTO 0.03 K/mm3 (0.00-0.23); BASOPHILS PERCENT AUTO 0 % (0-2); EOSINOPHILS ABSOLUTE AUTO 0.16 K/mm3 (0.00-0.68); EOSINOPHILS PERCENT AUTO 2 % (0-6); Hematocrit 37.6 % (33.0-51.0); IMMATURE GRAN ABSOLUTE AUTO 0.02 K/mm3 (0.00-0.10); IMMATURE GRAN PERCENT AUTO 0 % (0-1); LYMPHOCYTES ABSOLUTE AUTO 1.79 K/mm3 (0.84-5.20); LYMPHOCYTES PERCENT AUTO 26 % (21-46); MONOCYTES ABSOLUTE AUTO 0.77 K/mm3 (0.16-1.47); MONOCYTES PERCENT AUTO 11 % (4-13); Mean Corpuscular HGB 29.1 pg (26.0-34.0); Mean Corpuscular HGB Conc 31.9 g/dL (31.5-36.5); Mean Corpuscular Volume 91 fL (80-100); Mean Platelet Volume 11.6 fL (9.1-12.4); NEUTROPHILS ABSOLUTE AUTO 4.19 K/mm3 (1.96-9.15); NEUTROPHILS PERCENT AUTO 60 % (41-73); Platelet Count 212 K/mm3 (150-400); RDW Coefficient Variation 14.8 % (11.7-14.2); RDW Standard Deviation 50.1 fL (35.1-46.3); Red Blood Cell Count 4.12 M/mm3 (3.80-5.20); White Blood Cell Count 6.96 K/mm3 (4.00-11.30)
[2021-05-13 03:55] LABS: International Normalized Ratio 2.88; Prothrombin Time Results 28.2 Sec (9.7-11.5)
[2021-05-13 04:07] LABS: Bun/Creatinine Ratio 13.4 (12.0-20.0); Calcium, Blood 9.3 mg/dL (8.5-10.1); Creatinine, Blood 0.9 mg/dL (0.40-1.00); Potassium, Blood 3.3 mmol/L (3.5-5.5)
--- NOTE | 2021-05-13 05:54 | NUR ---
End of shift summary Pt rested better tonight per her she also states she feels better. VSS, room air, and home CPAP on overnight, some confusion but overall pt neuros intact. Will monitor CECY Escamilla
[2021-05-13 13:19] LABS: Vancomycin, Trough 12.5 ug/mL (5.0-10.0)
--- NOTE | 2021-05-13 17:39 | NUR ---
SHIFT SUMMARY: Pt remains A&Ox4. VSS. Afebrile. No c/o pain. AUO. BM x2-refused scheduled Colace. Tolerating current diet. OT evaluation completed- SBA during ambulation around room/bathroom. Frequent rounds to ensure pt safety. Encouraged pt to reposition q2hrs and pressure points offloaded to prevent pressure ulcers, pt verbalized understanding. Pt in no apparent distress at this time. Will continue to monitor until transfer of care to oncoming RN.
[2021-05-14 03:58] LABS: BASOPHILS ABSOLUTE AUTO 0.03 K/mm3 (0.00-0.23); BASOPHILS PERCENT AUTO 1 % (0-2); EOSINOPHILS ABSOLUTE AUTO 0.12 K/mm3 (0.00-0.68); EOSINOPHILS PERCENT AUTO 2 % (0-6); Hematocrit 36.8 % (33.0-51.0); Hemoglobin 11.9 g/dL (11.5-16.0); IMMATURE GRAN ABSOLUTE AUTO 0.02 K/mm3 (0.00-0.10); IMMATURE GRAN PERCENT AUTO 0 % (0-1); LYMPHOCYTES ABSOLUTE AUTO 0.96 K/mm3 (0.84-5.20); LYMPHOCYTES PERCENT AUTO 17 % (21-46); MONOCYTES ABSOLUTE AUTO 0.66 K/mm3 (0.16-1.47); MONOCYTES PERCENT AUTO 12 % (4-13); Mean Corpuscular HGB 28.9 pg (26.0-34.0); Mean Corpuscular HGB Conc 32.3 g/dL (31.5-36.5); Mean Corpuscular Volume 89 fL (80-100); Mean Platelet Volume 11.9 fL (9.1-12.4); NEUTROPHILS ABSOLUTE AUTO 3.82 K/mm3 (1.96-9.15); NEUTROPHILS PERCENT AUTO 68 % (41-73); Platelet Count 220 K/mm3 (150-400); RDW Coefficient Variation 14.6 % (11.7-14.2); RDW Standard Deviation 48.1 fL (35.1-46.3); Red Blood Cell Count 4.12 M/mm3 (3.80-5.20); White Blood Cell Count 5.61 K/mm3 (4.00-11.30)
[2021-05-14 04:11] LABS: International Normalized Ratio 1.92; Prothrombin Time Results 19.3 Sec (9.7-11.5)
[2021-05-14 04:17] LABS: Bun/Creatinine Ratio 12.7 (12.0-20.0); Calcium, Blood 9.5 mg/dL (8.5-10.1); Creatinine, Blood 0.94 mg/dL (0.40-1.00); Potassium, Blood 3.5 mmol/L (3.5-5.5)
--- NOTE | 2021-05-14 05:29 | NUR ---
End of shift summary Pt does get intermittently confused but redirects well, she thought she was at home for awhile, VSS, room air/ home CPAP throughout night, she is eager to discharge, her mobility has greatly improved, will monitor CECY Escamilla
[2021-05-14] MEDS ORDERED: AMOCLA875 PO (13:06)
--- NOTE | 2021-05-14 15:00 | NUR ---
FAMILY WAS CALLED BY THIS RN TO RETURN TO THE HOSPITAL TO HAVE IV DC'D. PT RETURNED, IV DC'D CATH INTACT.
--- NOTE | 2021-05-14 15:13 | NUR ---
DISCHARGE SUMMARY PT DISCHARGED HOME. DISCHARGE INSTRUCTIONS PROVIDED, PT VERBALIZED UNDERSTANDING. ALL BELONGINGS SENT WITH PT AT DISCHARGE. PTS RIDE WAS RUNNING LATE, INSTRUCTED TO NOTIFY PRIMARY NURSE WHEN RIDE ARRIVED SO THAT PIV COULD BE REMOVED. PT LEFT WITH PIV IN PLACE WITHOUT NOTIFYING PRIMARY RN WHEN RIDE ARRIVED. FAMILY TO BE NOTIFIED.
== END 2021-05-14 14:25 | disposition home or self-care (01) | DRG 194 ==
LOC: ER 12:40 → PCU 14:57
PROVIDERS: Emergency Medicine; Family Medicine; Pharmacist; ADMIT Family Medicine
DX: J18.9 Pneumonia, unspecified organism (principal); I48.21 Permanent atrial fibrillation; R78.81 Bacteremia; I13.0 Hypertensive heart and chronic kidney disease with heart failure and stage 1 through stage 4 chronic kidney disease, or unspecified chronic kidney disease; Z68.39 Body mass index [BMI] 39.0-39.9, adult; Z20.822 Contact with and (suspected) exposure to COVID-19; E66.9 Obesity, unspecified; I50.9 Heart failure, unspecified; G47.00 Insomnia, unspecified; N18.31 Chronic kidney disease, stage 3a; K59.00 Constipation, unspecified; D50.9 Iron deficiency anemia, unspecified; E11.22 Type 2 diabetes mellitus with diabetic chronic kidney disease; G47.33 Obstructive sleep apnea (adult) (pediatric); D63.1 Anemia in chronic kidney disease; E78.5 Hyperlipidemia, unspecified; H10.9 Unspecified conjunctivitis; E03.9 Hypothyroidism, unspecified; E55.9 Vitamin D deficiency, unspecified; I35.0 Nonrheumatic aortic (valve) stenosis; Z87.891 Personal history of nicotine dependence; Z98.890 Other specified postprocedural states; Z79.01 Long term (current) use of anticoagulants; Z79.899 Other long term (current) drug therapy
CPT/HCPCS: 0241U; 36415; 71046; 80048; 80053; 80202; 83605; 83880; 84484; 85025; 85610; 87040; 87077; 87186; 93005; 93010; 93306; 94660; 94760; 94762; 96365; 96375; 97165; 97535; 99285-25; A9270; J0456; J0696; J2543; J3370; J7030; J7050

== ENCOUNTER 2022-01-02 16:56 | Inpatient (IN) | payer MEDICARE, OTHER ==
[~2022-01-02] VITALS: Ht 149.9 cm; Wt 78.9 kg
[~2022-01-02 16:56] MED LIST changes: +ALDACTONE25 MG PO; +AMOCLA875 PO; +ATOR10 PO; +EUTHYROX100 MC1 PO; +FUROSEMIDE40 MG PO; +METO50ER PO; +TRAZ100 PO
[2022-01-02 18:13] LABS: BASOPHILS ABSOLUTE AUTO 0.03 K/mm3 (0.00-0.23); BASOPHILS PERCENT AUTO 0 % (0-2); EOSINOPHILS ABSOLUTE AUTO 0.02 K/mm3 (0.00-0.68); EOSINOPHILS PERCENT AUTO 0 % (0-6); Hematocrit 43.5 % (33.0-51.0); Hemoglobin 13.8 g/dL (11.5-16.0); IMMATURE GRAN ABSOLUTE AUTO 0.02 K/mm3 (0.00-0.10); IMMATURE GRAN PERCENT AUTO 0 % (0-1); LYMPHOCYTES ABSOLUTE AUTO 1.63 K/mm3 (0.84-5.20); LYMPHOCYTES PERCENT AUTO 23 % (21-46); MONOCYTES ABSOLUTE AUTO 0.71 K/mm3 (0.16-1.47); MONOCYTES PERCENT AUTO 10 % (4-13); Mean Corpuscular HGB 27.8 pg (26.0-34.0); Mean Corpuscular HGB Conc 31.7 g/dL (31.5-36.5); Mean Corpuscular Volume 88 fL (80-100); Mean Platelet Volume 11.8 fL (9.1-12.4); NEUTROPHILS ABSOLUTE AUTO 4.68 K/mm3 (1.96-9.15); NEUTROPHILS PERCENT AUTO 66 % (41-73); Platelet Count 233 K/mm3 (150-400); RDW Coefficient Variation 16.8 % (11.7-14.2); RDW Standard Deviation 53.5 fL (35.1-46.3); Red Blood Cell Count 4.97 M/mm3 (3.80-5.20); White Blood Cell Count 7.09 K/mm3 (4.00-11.30)
[2022-01-02 18:37] LABS: Albumin, Blood 3.2 g/dL (3.4-5.0); Albumin/Globulin Ratio 0.6 (0.8-1.8); Bun/Creatinine Ratio 15.3 (12.0-20.0); Calcium, Blood 9.5 mg/dL (8.5-10.1); Creatinine, Blood 0.85 mg/dL (0.40-1.00); Globulin, Blood 5.2 g/dL (2.2-4.0); Potassium, Blood 4.7 mmol/L (3.5-5.5); Total Protein, Blood 8.4 g/dL (6.4-8.2)
[2022-01-02 20:13] LABS: Influenza A, PCR NEGATIVE (NEGATIVE); Influenza B, PCR NEGATIVE (NEGATIVE); Resp Syncytial Virus, PCR NEGATIVE (NEGATIVE); SARS-Cov-2 (COVID-19) PCR, MMC NEGATIVE (NEGATIVE)
[2022-01-03 00:21] LABS: International Normalized Ratio 1.54; Prothrombin Time Results 15.7 Sec (9.7-11.5)
[2022-01-03 03:35] LABS: BASOPHILS ABSOLUTE AUTO 0.03 K/mm3 (0.00-0.23); BASOPHILS PERCENT AUTO 1 % (0-2); EOSINOPHILS ABSOLUTE AUTO 0.01 K/mm3 (0.00-0.68); EOSINOPHILS PERCENT AUTO 0 % (0-6); Hematocrit 43.6 % (33.0-51.0); Hemoglobin 13.5 g/dL (11.5-16.0); IMMATURE GRAN ABSOLUTE AUTO 0.02 K/mm3 (0.00-0.10); IMMATURE GRAN PERCENT AUTO 0 % (0-1); LYMPHOCYTES ABSOLUTE AUTO 1.51 K/mm3 (0.84-5.20); LYMPHOCYTES PERCENT AUTO 26 % (21-46); MONOCYTES PERCENT AUTO 10 % (4-13); Mean Corpuscular HGB 27.9 pg (26.0-34.0); Mean Corpuscular Volume 90 fL (80-100); Mean Platelet Volume 11.5 fL (9.1-12.4); NEUTROPHILS ABSOLUTE AUTO 3.73 K/mm3 (1.96-9.15); NEUTROPHILS PERCENT AUTO 63 % (41-73); Platelet Count 184 K/mm3 (150-400); RDW Coefficient Variation 16.7 % (11.7-14.2); Red Blood Cell Count 4.84 M/mm3 (3.80-5.20)
[2022-01-03 03:54] LABS: Albumin, Blood 3.1 g/dL (3.4-5.0); Albumin/Globulin Ratio 0.7 (0.8-1.8); Bilirubin, Total 0.7 mg/dL (0.1-1.0); Bun/Creatinine Ratio 16.2 (12.0-20.0); Calcium, Blood 9.2 mg/dL (8.5-10.1); Creatinine, Blood 0.87 mg/dL (0.40-1.00); Globulin, Blood 4.7 g/dL (2.2-4.0); Potassium, Blood 3.7 mmol/L (3.5-5.5); Total Protein, Blood 7.8 g/dL (6.4-8.2)
--- NOTE | 2022-01-03 06:49 | NUR ---
SHIFT SUMMARY PT ARRIVED FROM ER AROUND 0210. NEURO: A/OX3, REORIENTED ON DAY. GENERALIZED WEAKNESS. EQUAL STRENGTH. PT DID NOT GET QUALITY SLEEP THIS SHIFT. CARDIAC: PT IN AND OUT OF A BBB AND A FIB WITH RVR. BP STABLE. ONE TIME DOSE OF 5MG IV METOPROLOL GIVEN. PULSES FAINT BUT PRESENT. +1 EDEMA IN EXTREMETIES LUNGS: DIMINISHED, PT ON 2L NC : PURWICK IN PLACE
--- NOTE | 2022-01-03 07:33 | NUR ---
ASSUMED CARE DR. MONET AT BEDSIDE TO JULIEN. PT. AWAKENS TO VERBAL STIMULI. ANSWERING QUESTIONS APPROPRIATELY, AND KEEPS STATING"IM SO TIRED". PT. HR REMAINS 120S THIS AM DENIES ANY CHEST PAIN OR PRESSURE. CONTINUES ON 2LNC, WITH OCCASIONAL PRODUCTIVE COUGH. PT TEMP 99.7 THIS AM, PURWICK IN PLACE. CALL LIGHT IN REACH. PT REQUESTING TO SLEEP SOME MORE AT THIS TIME.
--- NOTE | 2022-01-03 11:55 | NUR ---
ASSUMED CARE.... ASSUMED CARE OF PT AT APROX 1100. THE PT IS A&Ox4 WITH SOME FORGETFULLNESS. THE PT IS IN AFIB WITH RVR WITH RATES IN THE 110'S-130'S, INCREASES TO THE 140'S WITH ACTIVITY. THE PT'S BP IS STABLE. SHE HAS 1+ EDEMA NOTED TO HER BLE. PULSES FAINT BUT PRESENT. L/S COARSE T/O, PT HAS A MOIST COUGH. SHE IS ON 2L NC WITH O2 SATS >90%. BT PRESENT AND HYPOACTIVE, ABD SOFT AND NONTENDER TO PALPATION. PURWICK IN PLACE AND REPOSITIONED. DAUGHTER AT THE BEDSIDE. WILL CONTINUE TO MONITOR.
--- NOTE | 2022-01-03 18:48 | NUR ---
SHIFT SUMMARY.... NO ACUTE NEGATIVE CHANGES NOTED THIS SHIFT. THE PT HAD A TMAX OF 104.0 SHE WAS TREATED WITH TYLENOL 650MGS TEMP IS CURRENTLY 98.8. THE PT'S BP CONTINUES TO BE SOFT BUT MAPS >65. SHE CONTINUES TO BE IN AFIB W/RVR IN THE 120'S-130'S THE PT DENIES ANY CHEST PAIN/PRESSURE. SHE CONTINUES TO HAVE A MOIST NONPRODUCTIVE COUGH ON 2L NC WITH O2 SATS>94%. PURWICK IN PLACE, REPOSTIONED SEVERAL TIMES THIS SHIFT. CALL LIGHT IN REACH WILL CONTINUE TO MONITOR UNTIL REPORT IS GIVEN TO ONCOMING RN.
--- NOTE | 2022-01-04 05:04 | NUR ---
NO SIGNIFICANT EVENTS OVER NIGHT. PT SLEEPING INTERMITTENTLY. HRS INCREASE TO 150s WITH MINIMAL ACTIVITY WHICH HAS BEEN PTS BASELINE DURING THIS ADMIT. MD AWARE. PT DENIES CP AND /OR PALLPITATIONS. BPs STABLE. PT FORGETFUL BUT NOT IMPULSIVE. WILL CHANGE PUREWICK THIS AM.
[2022-01-04 05:21] LABS: International Normalized Ratio 2.09; Prothrombin Time Results 20.9 Sec (9.7-11.5)
[2022-01-04 06:09] LABS: BASOPHILS ABSOLUTE AUTO 0.03 K/mm3 (0.00-0.23); BASOPHILS PERCENT AUTO 0 % (0-2); EOSINOPHILS ABSOLUTE AUTO 0.01 K/mm3 (0.00-0.68); EOSINOPHILS PERCENT AUTO 0 % (0-6); Hematocrit 41.3 % (33.0-51.0); Hemoglobin 13.1 g/dL (11.5-16.0); IMMATURE GRAN ABSOLUTE AUTO 0.02 K/mm3 (0.00-0.10); IMMATURE GRAN PERCENT AUTO 0 % (0-1); LYMPHOCYTES ABSOLUTE AUTO 1.78 K/mm3 (0.84-5.20); LYMPHOCYTES PERCENT AUTO 24 % (21-46); MONOCYTES ABSOLUTE AUTO 0.68 K/mm3 (0.16-1.47); MONOCYTES PERCENT AUTO 9 % (4-13); Mean Corpuscular HGB Conc 31.7 g/dL (31.5-36.5); Mean Corpuscular Volume 88 fL (80-100); NEUTROPHILS ABSOLUTE AUTO 4.94 K/mm3 (1.96-9.15); NEUTROPHILS PERCENT AUTO 66 % (41-73); Platelet Count 191 K/mm3 (150-400); RDW Coefficient Variation 16.7 % (11.7-14.2); RDW Standard Deviation 53.8 fL (35.1-46.3); Red Blood Cell Count 4.68 M/mm3 (3.80-5.20); White Blood Cell Count 7.46 K/mm3 (4.00-11.30)
[2022-01-04 06:18] LABS: Bun/Creatinine Ratio 19.4 (12.0-20.0); Calcium, Blood 9.5 mg/dL (8.5-10.1); Creatinine, Blood 0.88 mg/dL (0.40-1.00); Potassium, Blood 3.5 mmol/L (3.5-5.5)
--- NOTE | 2022-01-04 08:59 | NUR ---
ASSUMED CARE BEDSIDE REPORT FROM VANITA RN AT 0700. PT RESTING IN BED. REPORTS POOR SLEEP LAST NOC. A&OX 3, RAMBLING SPEECH. INTERMITTANTLY CONFUSED, REORIENTS EASILY. AFIB, RATE 120-140'S ON MONITOR. BP STABLE. PT DENIES CHEST PAIN. LUNGS COARSE c EXP WHEEZES THROUGHOUT. MOIST COUGH. 2L VIA NC, O2 SATS MID 90'S. CARDIZEM GTT STARTED ORDERED. ABD OBESE, SOFT, NON TENDER. BT X 4. PUREWICK IN PLACE, CHANGED. BEDBATH GIVEN, LINENS CHANGED. POWERGLIDE TO LUE, DRESSING C/D/I. WILL CONTINUE TO MONITOR.
--- NOTE | 2022-01-04 18:12 | NUR ---
SHIFT SUMMARY CARDIZEM GTT STARTED THIS SHIFT, TITRATED UP TO MAX OF 15 MG/HR, CURRENTLY ON 5 MG/HR. HR 100-110'S. BP STABLE. 2L VIA NC. CONTINUES TO HAVE MOIST COUGH. LUNGS COARSE, EXP WHEEZES. PT UP TO CHAIR AND BSC THIS SHIFT MULTIPLE TIMES, TOLERATED WELL, ONE PERSON ASSIST c WALKER. TITI REMOVED THIS SHIFT. CALL LIGHT IN REACH. WILL CONTINUE TO MONITOR UNTIL REPORT TO ONCOMING NURSE.
--- NOTE | 2022-01-04 21:06 | NUR ---
ASSUMED CARE OF PATIENT. PATIENT IS AO AND VERY PLEASANT. DENIES ANY PAIN. REMAINS ON DILT GTT FOR AFIB RVR.
--- NOTE | 2022-01-04 23:45 | NUR ---
TOOK OVER CARE OF PT AT 2340. PT RESTING ON 4L NC, 10 OF DILTIAZEM GTT RUNNING
[2022-01-05 03:50] LABS: BASOPHILS ABSOLUTE AUTO 0.02 K/mm3 (0.00-0.23); BASOPHILS PERCENT AUTO 0 % (0-2); EOSINOPHILS PERCENT AUTO 0 % (0-6); Hematocrit 38.5 % (33.0-51.0); Hemoglobin 12.2 g/dL (11.5-16.0); IMMATURE GRAN ABSOLUTE AUTO 0.02 K/mm3 (0.00-0.10); IMMATURE GRAN PERCENT AUTO 0 % (0-1); LYMPHOCYTES ABSOLUTE AUTO 1.83 K/mm3 (0.84-5.20); LYMPHOCYTES PERCENT AUTO 27 % (21-46); MONOCYTES ABSOLUTE AUTO 0.69 K/mm3 (0.16-1.47); MONOCYTES PERCENT AUTO 10 % (4-13); Mean Corpuscular HGB 27.7 pg (26.0-34.0); Mean Corpuscular HGB Conc 31.7 g/dL (31.5-36.5); Mean Corpuscular Volume 87 fL (80-100); Mean Platelet Volume 11.7 fL (9.1-12.4); NEUTROPHILS ABSOLUTE AUTO 4.11 K/mm3 (1.96-9.15); NEUTROPHILS PERCENT AUTO 62 % (41-73); Platelet Count 167 K/mm3 (150-400); RDW Coefficient Variation 16.4 % (11.7-14.2); RDW Standard Deviation 52.6 fL (35.1-46.3); Red Blood Cell Count 4.41 M/mm3 (3.80-5.20); White Blood Cell Count 6.67 K/mm3 (4.00-11.30)
[2022-01-05 04:05] LABS: Bun/Creatinine Ratio 24.6 (12.0-20.0); Calcium, Blood 9.4 mg/dL (8.5-10.1); Creatinine, Blood 0.97 mg/dL (0.40-1.00); International Normalized Ratio 1.97; Prothrombin Time Results 19.8 Sec (9.7-11.5)
--- NOTE | 2022-01-05 05:43 | NUR ---
SUMMARY NEURO: PT FOLLOWING COMMANDS EQUALLY IN ALL EXTREMETIES. INTERMITTENT CONFUSION WHILE WAKING UP. STANDBY ASSIST TO COMMODE. DIFFICULTY STAYING ASLEEP BUT WAS ABLE TO SLEEP AFTER PLACING CLOTH OVER THEIR EYES. LUNGS: COARSE UPPER LOBES, DIMINISHED BASES AND AUDIBLE WHEEZES. PT IS ON 4LNC. PT IS HAVING DIFFICULTY BRINGING UP SECRETIONS WITH COUGH. SPUTUM HAS BEEN THICK BUT CLEAR THIS SHIFT. CARDIAC: PT IS ON DILT GTT WITH A MAX OF 10 THIS SHIFT. PT ALTERNATING BETWEEN A BBB AND AFIB. TRC-+1 EDEMA IN EXTREMETIES. GI; NO BM THIS SHIFT. ; CONTINENT THIS SHIFT USING THE COMMODE.
--- NOTE | 2022-01-05 07:00 | NUR ---
ASSUMPTION OF CARE PT RECEIVING DILTIAZEM 5MG/HR. AFIB ON MONITOR WITH RATE IN 90S. BP STABLE WITH MAP >65. SHE IS ON 4L VIA NC WITH SPO2 >95% WITH AUDIBLE WHEEZES. BED IN LOWEST POSITION, CALL LIGHT WITHIN REACH. SEE SHIFT ASSESSMENT.
--- NOTE | 2022-01-05 10:19 | NUR ---
UPDATE PT REPORTS "FEELING BETTER THAN YESTERDAY". SHE CONTINUES TO HAVE A PRODUCTIVE COUGH AND REPORTS YELLOW PHLEGM. SHE REMAINS ON 4L NC WITH SPO2 >93%. REPEAT MAG LEVEL DRAWN. ASSISTED TO BEDSIDE COMMODE. PT REQUESTS UNINTERRUPTED REST. BED IN LOWEST POSITION, CALL LIGHT WITHIN REACH.
--- NOTE | 2022-01-05 15:48 | NUR ---
UPDATE DAUGHTER HAS BEEN VISITING AT BEDSIDE TODAY. PT WORKED WITH PT/OT. SHE CONTINUES TO RECEIVE DILTIAZEM 5MG/HR. PT CURRENTLY RESTING IN BED.
--- NOTE | 2022-01-05 17:43 | NUR ---
SHIFT SUMMARY PT REMAINS A&OX4. SHE SLEPT ON AND OFF THROUGHOUT THE DAY. DAUGHTER WAS AT BEDSIDE VISITING MOST OF SHIFT. DILTIAZEM GTT ON STANDBY AT 1630. SHE REMAINS IN AFIB WITH RATE 70S-80S. BP STABLE WITH MAP >65. PT WORKED WITH PT/OT TODAY. PT 1 PERSON ASSIST TO BEDSIDE COMMODE, CONTINENT OF URINE. PT SITTING IN CHAIR AT THIS TIME WITH CALL LIGHT WITHIN REACH. VSS, WILL CONTINUE TO MONITOR.
--- NOTE | 2022-01-06 04:44 | NUR ---
LAB HERE TO DRAW.
[2022-01-06 04:52] LABS: BASOPHILS ABSOLUTE AUTO 0.02 K/mm3 (0.00-0.23); BASOPHILS PERCENT AUTO 0 % (0-2); EOSINOPHILS ABSOLUTE AUTO 0.02 K/mm3 (0.00-0.68); EOSINOPHILS PERCENT AUTO 0 % (0-6); Hematocrit 37.4 % (33.0-51.0); Hemoglobin 11.8 g/dL (11.5-16.0); IMMATURE GRAN ABSOLUTE AUTO 0.02 K/mm3 (0.00-0.10); IMMATURE GRAN PERCENT AUTO 0 % (0-1); LYMPHOCYTES ABSOLUTE AUTO 1.36 K/mm3 (0.84-5.20); LYMPHOCYTES PERCENT AUTO 26 % (21-46); MONOCYTES ABSOLUTE AUTO 0.58 K/mm3 (0.16-1.47); MONOCYTES PERCENT AUTO 11 % (4-13); Mean Corpuscular HGB 28.2 pg (26.0-34.0); Mean Corpuscular HGB Conc 31.6 g/dL (31.5-36.5); Mean Corpuscular Volume 89 fL (80-100); Mean Platelet Volume 11.6 fL (9.1-12.4); NEUTROPHILS ABSOLUTE AUTO 3.25 K/mm3 (1.96-9.15); NEUTROPHILS PERCENT AUTO 62 % (41-73); Platelet Count 146 K/mm3 (150-400); RDW Standard Deviation 52.8 fL (35.1-46.3); Red Blood Cell Count 4.19 M/mm3 (3.80-5.20); White Blood Cell Count 5.25 K/mm3 (4.00-11.30)
[2022-01-06 05:07] LABS: International Normalized Ratio 2.48; Prothrombin Time Results 24.5 Sec (9.7-11.5)
[2022-01-06 05:17] LABS: Albumin, Blood 2.6 g/dL (3.4-5.0); Anion Gap 4 mmol/L (6-16); Blood Urea Nitrogen 23 mg/dL (8-24); Bun/Creatinine Ratio 29.4 (12.0-20.0); CO2, Blood 37 mmol/L (21-32); Calcium, Blood 9.4 mg/dL (8.5-10.1); Chloride, Blood 96 mmol/L (98-108); Creatinine, Blood 0.78 mg/dL (0.40-1.00); Glomerular Filtration Rate 74 (60-); Glucose, Blood 98 mg/dL (70-99); Phosphorus, Blood 2.9 mg/dL (2.5-4.9); Potassium, Blood 3.8 mmol/L (3.5-5.5); Sodium, Blood 137 mmol/L (136-145)
--- NOTE | 2022-01-06 05:17 | NUR ---
END OF SHIFT SUMMARY PT A/O X4. NO VISITORS THIS SHIFT. PT ABLE TO STAND UP ON HER OWN. USES WALKER TO GET TO TOILET STAND BY ASSIST ONLY. MULTIPLE USES OF TOILET THROUGHOUT SHIFT WITH ONLY URINE OUTPUT, NO BM THIS SHIFT. CONSISTANT A-FIB WITH BP AND HR STABLE. CPAP WORN ALL NIGHT WITH SPO2 >92%, NC AT 4L OTHERWISE. PT PREFERS NO WATER IN HUMIDIFIER CHAMBER. WILL CONTINUE TO MONITOR UNTIL REPORT GIVEN TO AM NURSE.
--- NOTE | 2022-01-06 07:15 | NUR ---
ASSUMPTION OF CARE PT WAKENS EASILY TO VERBAL STIMULI. SHE IS A&OX4 WITH PLEASANT AFFECT AND PARTICIPATES IN CONVERSATION. PT REPORTS MILD HALLUCINATIONS INCLUDING HER BLANKETS MOVING. SHE ACKNOWLEDGES THIS IS NOT ACTUALLY HAPPENING. SHE REMAINS ON 4L NC WITH SPO2 >94%. LUNGS ARE COARSE, DIMINISHED IN BASES. SHE IS IN AFIB WITH RATE 80S-90S. BP STABLE WITH SBP 110S. SHE HAS A PRODUCTIVE COUGH WITH YELLOW PHLEGM. BOWEL TONES ACTIVE, ABDOMEN SOFT. STAND BY ASSIST TO BEDSIDE COMMODE. C/O L SHOULDER PAIN THIS AM, MEDICATED PER EMAR. DR THOMPSON AT BEDSIDE FOR EVAL. PT TRANSITIONED TO MED TELE STATUS. BED IN LOWEST POSITION, CALL LIGHT WITHIN REACH. PT CURRENTLY EATING BREAKFAST.
--- NOTE | 2022-01-06 11:38 | NUR ---
TRANSFER TO [facility] REPORT RECIEVED FROM REMINGTON SAM. PT ALERT AND ORIENTED. COOPERATIVE WITH CARE. ORIENTED TO ROOM. REPORT GIVEN TO BIOLOGICAL SCIENCES INSTRUCTOR. CONTINUE POC.
--- NOTE | 2022-01-06 11:44 | NUR ---
UPDATE PT REQUESTED REST. REPORT GIVEN TO RENNY SMA. PT TRANSPORTED TO MEDICAL FLOOR VIA WHEELCHAIR BY BIOSTATISTICS TEACHER WITH CPAP AND BELONGINGS. WILL NOTIFY DAUGHTER REGINO.
--- NOTE | 2022-01-06 17:26 | NUR ---
NOTE PT TRANSFERED FROM ICU TODAY. RESTING QUIETLY. VSS. SHE JUST WANTS TO SLEEP. TELE INTACT. AFIB WITH CVR PER MONITOR. TAKING CARDIZEM AND TOLERATING WELL. DENIED PAIN OR DISCOMFORT AT THIS TIME. H/L. PT OWN CPAP AT BEDSIDE. LUNGS COAURSE. ENCOURAGED TO COUGH AND DEEP BREATH EVERY HOUR WHILE AWAKE. CONTINUE POC.
[2022-01-07 05:27] LABS: International Normalized Ratio 3.59; Prothrombin Time Results 34.7 Sec (9.7-11.5)
[2022-01-07 05:36] LABS: Albumin, Blood 2.5 g/dL (3.4-5.0); Anion Gap 5 mmol/L (6-16); Blood Urea Nitrogen 23 mg/dL (8-24); Bun/Creatinine Ratio 28.9 (12.0-20.0); CO2, Blood 38 mmol/L (21-32); Calcium, Blood 9.7 mg/dL (8.5-10.1); Chloride, Blood 95 mmol/L (98-108); Glomerular Filtration Rate 72 (60-); Glucose, Blood 99 mg/dL (70-99); Phosphorus, Blood 2.8 mg/dL (2.5-4.9); Potassium, Blood 3.5 mmol/L (3.5-5.5); Sodium, Blood 138 mmol/L (136-145)
--- NOTE | 2022-01-07 13:43 | NUR ---
DR THOMPSON ROUNDED, PATIENTS DAUGHTER AT BEDSIDE TALKING WITH SUPERVISOR TRUST ACCOUNTS, OT WORKED WITH PATIENT, PATIENT VERY RELUCTANT TO ANY CARE OR INTERVENTIONS, DAUGHTER HELPFUL AT BEDSIDE, PATIENT AGREED TO OT, PATIENT DESATS TO 83% ON RA AT REST, O2 ON NOW VIA NC SATS 91%, CALL LIGHT WITH IN REACH
--- NOTE | 2022-01-07 16:24 | NUR ---
Spiritual Care Visit. Pt. is awake in bed and welcomes my visit. Pts. daughter is present. Pt. is unsettled about her condition initially, but verbalized that "she was doing better than others." Facilitated a brief life review and established rapport. Pt. displayed evidence of a softened countenance. Prayed with Pt. and daughter. Pt. verbalized gratitude for the spiritual care visit.
--- NOTE | 2022-01-07 18:36 | NUR ---
ALERT AND ORIENTED, FORGETFUL, DOES NOT USE THE CALL LIGHT, RE;UCTANT FOR ALL CARE AND INTERVENTIONS, DAUGHTER HERE TODAY, VERY HELPFUL, DAUGHTER TALKED WITH CASE MANAGEMENT, PATIENT TRIED REFUSING OT BUT DAUGHTER AT BEDSIDE ENCOURAGED HER TO AND SHE DID DO OT. NO ACUTE CHANGES, RELUCTANT TO SAFETY BED AND CHAIR ALARM, PATIENT 1 PERSON TRANSFER, FWW, WEAK UNSTADY GAIT. DOES NOT USE THE CALL LIGHT, EDUCATED TO USE IT MULTIPLE TIMES. CALL LIGHT WITH IN REACH, WILL RELAY TO PM RN
--- NOTE | 2022-01-07 19:20 | NUR ---
RECEDIVED REPORT FROM DAYSHIFT RN. WILL PROVIDE CARE T/O SHIFT. CALL LT IN REACH.
--- NOTE | 2022-01-07 22:44 | NUR ---
WELDER BOILERMAKER ASSISTED PT TO THE BR USING FWW AND BACK TO BED. NO OTHER NEEDS AT THIS TIME. PT TOOK MEDS EARLIER ONE AT A TIME WITH WATER. PT DRINKING WELL. DENIED PAIN, SOB, AND NAUSEA. WILL CONTINUE TO PROVIDE CARE. CALL LT IN REACH. BED ALARM ON.
--- NOTE | 2022-01-08 00:15 | NUR ---
PT ASSISTED BACK TO BED BY SUBMARINE DIVER AFTER TOILETING. NO OTHER NEEDS. BED ALARM PLACED AND CALL LT IN REACH.
--- NOTE | 2022-01-08 02:01 | NUR ---
PT RESTING QUIETLY. CALL LT IN REACH.
--- NOTE | 2022-01-08 04:06 | NUR ---
PT RESTING QUIETLY. NO NEEDS AT THIS TIME. CALL LT IN REACH.
--- NOTE | 2022-01-08 04:38 | NUR ---
SHIFT SUMMARY: ALERT AND ORIENTED. ABLE TO TO STATE NEEDS APPROPRIATELY. ON 3L VIA NC. STRONG PRODUCTIVE COUGH NOTED WITH SOME WHITISH SPUTUM. ENCOURAGED PT TO DRINK PLENTY OF FLUIDS. AFIB IN THE ONE TEENS ON TELE. DENIES SOB DURING AMBULATION TO THE BR AND BACK TO BED. WAS ASSISTED BY CRM SYSTEM ADMINISTRATOR SEVERAL TIMES TO THE BR. NO COMPLAINTS OF PAIN OR NAUSEA. WILL CONTINUE TO PROVIDE CARE UNTIL SHIFT REPORT.
[2022-01-08 05:34] LABS: International Normalized Ratio 3.32; Prothrombin Time Results 32.2 Sec (9.7-11.5)
--- NOTE | 2022-01-08 17:00 | NUR ---
STUDENT NURSE SHIFT SUMMARY PATIENTS HAD NO COMPLAINTS OF PAIN, NAUSEA, SOB, VOMITING. TOLERATED ORAL MEDICATIONS WELL. A&Ox4. VITALS REVIEWED. RUFUS TO AMBULATE TO THE BATHROOM WITH STANDBY ASSIST. NO ACUTE EVENTS THIS SHIFT. PLAN FOR POSSIBLE DISCHARGE IN THE MORNING. CALL LIGHT IN PLACE. BED LOCKED IN LOW POSITION.
--- NOTE | 2022-01-08 17:30 | NUR ---
SHIFT SUMMARY THIS RN AGREES WITH SPECIAL AGENT SHIFT SUMMARY NOTES AND ASSESSMENT OF PATIENT.
[2022-01-09 05:48] LABS: International Normalized Ratio 2.39; Prothrombin Time Results 23.7 Sec (9.7-11.5)
[2022-01-09 06:13] LABS: Albumin, Blood 2.5 g/dL (3.4-5.0); Anion Gap 5 mmol/L (6-16); Blood Urea Nitrogen 14 mg/dL (8-24); Bun/Creatinine Ratio 20.3 (12.0-20.0); CO2, Blood 41 mmol/L (21-32); Calcium, Blood 9.5 mg/dL (8.5-10.1); Chloride, Blood 93 mmol/L (98-108); Creatinine, Blood 0.69 mg/dL (0.40-1.00); Glomerular Filtration Rate 85 (60-); Glucose, Blood 88 mg/dL (70-99); Phosphorus, Blood 2.9 mg/dL (2.5-4.9); Potassium, Blood 3.4 mmol/L (3.5-5.5); Sodium, Blood 139 mmol/L (136-145)
--- NOTE | 2022-01-09 07:44 | NUR ---
PATIENT C/O FEELING FORGOTTON IN HER ROOM LAST EVENING. STATED NO ONE WOULD COME IN A TIMELY MANNER WHEN SHE HAD TO USE THE BATHROOM. AFTER ASSISTING HER BACK TO BED, (SHE HAD ALREADY BEEN AND COME BACK TO HER CHAIR) AND PERFORMING HS CARE, JULIO RECEIVED HER BEDTIME MEDICATIONS. ABOUT 2-3 MINUTES LATER, SHE BEGAN A 10 MINUTE VERY CONGESTED LOOSE SOUNDING COUGHING EVENT. SH SAID IT HAPPENS EACH TIME SHE GETS UP AND MOVES EVEN A SHORT DISTANCE LIKE TO THE BATHROOM. SHE WAS ABLE TO EXPELL A SMALL AMOUNT OF MUCOUS. IT WAS A COMBINATION OF THIN CLEAR AND WHITE. SHE DID HAVE THESE EVENTS EACH TIME SHE GOT OOB. OVERALL, SHE IS VERY ALERT AND ORIENTED, FOLLOWS COMMANDS AND IS VERY ANXIOUS TO GO HOME TODAY. NO COMPLAINTS OF PAIN OVERNIGHT
[2022-01-09] MEDS ORDERED: VISBIOME 112.51 EACH PO (11:47)
[2022-01-09] MEDS ORDERED: DOXY100 PO (11:47)
[2022-01-09] MEDS ORDERED: POTA10T PO (11:47)
[2022-01-09] MEDS ORDERED: BUME1 PO (11:47)
--- NOTE | 2022-01-09 16:15 | NUR ---
DISCHARGE SUMMARY PATIENT IS ALERT AND ORIENTED. PATIENT HAS HAD NO ACUTE EVENTS THIS SHIFT. PATIENT IS BEING DISCHARGED HOME WITH DAUGHTER TRANSPORTING. PATIENT IS BEING DISCHARGED ON OXYGEN. PATIENT WAS READ DISCHARGE INSTRUCTIONS BY PHARMACY. PATIENT AND DAUGHTER HAD NO NEW QUESTIONS.
== END 2022-01-09 15:52 | disposition home health service (06) | DRG 193 ==
LOC: ER 16:56 → ICUW 16:57 → ICUE 16:57 → MEDS 01-03 15:57 → ICUE 01-03 16:00 → MEDS 01-06 11:45
PROVIDERS: Family Medicine; Internal Medicine; Physician Assistant; ADMIT Family Medicine
DX: J18.9 Pneumonia, unspecified organism (principal); I50.33 Acute on chronic diastolic (congestive) heart failure; J96.21 Acute and chronic respiratory failure with hypoxia; E87.1 Hypo-osmolality and hyponatremia; I13.0 Hypertensive heart and chronic kidney disease with heart failure and stage 1 through stage 4 chronic kidney disease, or unspecified chronic kidney disease; Z20.822 Contact with and (suspected) exposure to COVID-19; I48.91 Unspecified atrial fibrillation; E78.5 Hyperlipidemia, unspecified; E03.9 Hypothyroidism, unspecified; D50.9 Iron deficiency anemia, unspecified; G47.33 Obstructive sleep apnea (adult) (pediatric); R94.31 Abnormal electrocardiogram [ECG] [EKG]; N18.31 Chronic kidney disease, stage 3a; I35.0 Nonrheumatic aortic (valve) stenosis; Z95.4 Presence of other heart-valve replacement; Z90.49 Acquired absence of other specified parts of digestive tract; Z90.710 Acquired absence of both cervix and uterus; Z98.890 Other specified postprocedural states; Z87.891 Personal history of nicotine dependence; Z79.01 Long term (current) use of anticoagulants; Z79.899 Other long term (current) drug therapy
CPT/HCPCS: 0241U; 36415; 71045; 71046; 80048; 80053; 80069; 82947; 83690; 83735; 83880; 84145; 84443; 84484; 85025; 85379; 85610; 93005; 93010; 93306; 94640; 94644; 94660; 94664; 94761; 94762; 96365; 96366; 96375; 96376; 97110; 97116; 97162; 97166; 97530; 97535; 99285-25; A9270; C1751; G0378; J0696; J1940; J3475; J7060

== ENCOUNTER 2022-03-23 17:35 | Inpatient (IN) | payer MEDICARE, OTHER ==
[~2022-03-23] VITALS: Ht 149.9 cm; Wt 71.4 kg
[~2022-03-23 17:35] MED LIST changes: +BUME1 PO; +DOXY100 PO; +POTA10T PO; +VISBIOME 112.51 EACH PO
[2022-03-23 18:19] LABS: BASOPHILS ABSOLUTE AUTO 0.04 K/mm3 (0.00-0.23); BASOPHILS PERCENT AUTO 1 % (0-2); EOSINOPHILS ABSOLUTE AUTO 0.07 K/mm3 (0.00-0.68); EOSINOPHILS PERCENT AUTO 1 % (0-6); Hematocrit 42.6 % (33.0-51.0); Hemoglobin 13.1 g/dL (11.5-16.0); IMMATURE GRAN ABSOLUTE AUTO 0.03 K/mm3 (0.00-0.10); IMMATURE GRAN PERCENT AUTO 1 % (0-1); LYMPHOCYTES ABSOLUTE AUTO 1.29 K/mm3 (0.84-5.20); LYMPHOCYTES PERCENT AUTO 20 % (21-46); MONOCYTES ABSOLUTE AUTO 0.44 K/mm3 (0.16-1.47); MONOCYTES PERCENT AUTO 7 % (4-13); Mean Corpuscular HGB 28.7 pg (26.0-34.0); Mean Corpuscular HGB Conc 30.8 g/dL (31.5-36.5); Mean Corpuscular Volume 93 fL (80-100); Mean Platelet Volume 11.6 fL (9.1-12.4); NEUTROPHILS ABSOLUTE AUTO 4.69 K/mm3 (1.96-9.15); NEUTROPHILS PERCENT AUTO 71 % (41-73); Platelet Count 271 K/mm3 (150-400); RDW Coefficient Variation 15.9 % (11.7-14.2); RDW Standard Deviation 54.5 fL (35.1-46.3); Red Blood Cell Count 4.57 M/mm3 (3.80-5.20); White Blood Cell Count 6.56 K/mm3 (4.00-11.30)
[2022-03-23 18:48] LABS: Albumin, Blood 2.9 g/dL (3.4-5.0); Albumin/Globulin Ratio 0.6 (0.8-1.8); Bilirubin, Total 0.8 mg/dL (0.1-1.0); Bun/Creatinine Ratio 13.9 (12.0-20.0); Calcium, Blood 9.9 mg/dL (8.5-10.1); Creatinine, Blood 0.86 mg/dL (0.40-1.00); Potassium, Blood 4.8 mmol/L (3.5-5.5); Total Protein, Blood 7.9 g/dL (6.4-8.2)
[2022-03-23 20:26] LABS: Influenza A, PCR NEGATIVE (NEGATIVE); Influenza B, PCR NEGATIVE (NEGATIVE); Resp Syncytial Virus, PCR NEGATIVE (NEGATIVE); SARS-Cov-2 (COVID-19) PCR, MMC NEGATIVE (NEGATIVE)
[2022-03-23] MEDS ORDERED: EUTHYROX88 MCG PO (20:26)
[2022-03-23] MEDS ORDERED: POTA10T PO (20:26)
[2022-03-23] MEDS ORDERED: LASIX40 MG PO (20:26)
[2022-03-23] MEDS ORDERED: Ropinirole HCl0.5 MG PO (20:26)
[2022-03-23] MEDS ORDERED: METO100ER PO (20:26)
[2022-03-23] MEDS ORDERED: WARF1 PO (20:27)
[2022-03-23 20:37] LABS: International Normalized Ratio 2.12; Prothrombin Time Results 21.2 Sec (9.7-11.5)
[2022-03-23] MEDS ORDERED: WARF5 PO (22:31)
[2022-03-24 02:08] LABS: BASOPHILS ABSOLUTE AUTO 0.03 K/mm3 (0.00-0.23); BASOPHILS PERCENT AUTO 1 % (0-2); EOSINOPHILS ABSOLUTE AUTO 0.04 K/mm3 (0.00-0.68); EOSINOPHILS PERCENT AUTO 1 % (0-6); Hematocrit 37.9 % (33.0-51.0); Hemoglobin 11.7 g/dL (11.5-16.0); IMMATURE GRAN ABSOLUTE AUTO 0.02 K/mm3 (0.00-0.10); IMMATURE GRAN PERCENT AUTO 0 % (0-1); LYMPHOCYTES ABSOLUTE AUTO 1.34 K/mm3 (0.84-5.20); LYMPHOCYTES PERCENT AUTO 23 % (21-46); MONOCYTES ABSOLUTE AUTO 0.42 K/mm3 (0.16-1.47); MONOCYTES PERCENT AUTO 7 % (4-13); Mean Corpuscular HGB 28.9 pg (26.0-34.0); Mean Corpuscular HGB Conc 30.9 g/dL (31.5-36.5); Mean Corpuscular Volume 94 fL (80-100); Mean Platelet Volume 11.4 fL (9.1-12.4); NEUTROPHILS ABSOLUTE AUTO 3.87 K/mm3 (1.96-9.15); NEUTROPHILS PERCENT AUTO 68 % (41-73); Platelet Count 230 K/mm3 (150-400); RDW Coefficient Variation 15.8 % (11.7-14.2); RDW Standard Deviation 54.8 fL (35.1-46.3); Red Blood Cell Count 4.05 M/mm3 (3.80-5.20); White Blood Cell Count 5.72 K/mm3 (4.00-11.30)
[2022-03-24 02:20] LABS: International Normalized Ratio 2.19; Prothrombin Time Results 21.8 Sec (9.7-11.5)
[2022-03-24 02:25] LABS: Bun/Creatinine Ratio 14.1 (12.0-20.0); Calcium, Blood 9.4 mg/dL (8.5-10.1); Creatinine, Blood 0.78 mg/dL (0.40-1.00); Potassium, Blood 4.1 mmol/L (3.5-5.5)
[2022-03-24] MEDS ORDERED: AMOCLA875 PO (15:02)
[2022-03-24] MEDS ORDERED: VISBIOME 112.51 EACH PO (15:03)
--- NOTE | 2022-03-24 17:22 | NUR ---
PT SLEEPING DURING SHIFT REPORT AND BREAKFAST WELL. PT NOT A MORNING PERSON, PER DAUGHTER, AND DOES NOT LIKE TO WAKE UP EARLY. PT WOKE LATER, REQUESTING ASSIST TO BTHRM. PT UP WITH 1P ASSIST USING FWW. PT'S DAUGHTER ABLE TO ASSIST PT IN GETTING BACK INTO BED. DR MONET IN TO SEE PT AND DISCUSS PLAN OF CARE. PT WANTING TO GO HOME TODAY. HOME O2 EVAL ORDERED AND COMPLETED. DR MONET LATER CALLED TO REPORT D/C ORDERS TO BE PLACED. D/C INSTRUCTIONS DISCUSSED WITH PT AND DAUGHTER WELL PHARMACY TO TO DISCUSS D/C MEDS; PT AND DAUGHTER VERBALIZED UNDERSTANDING. PT ASSISTED OUT TO DAUGHTERS CAR VIA W/C. BELONGINGS TAKEN BY DAUGHTER.
== END 2022-03-24 17:22 | disposition home or self-care (01) | DRG 177 ==
LOC: ER 17:35 → MEDS 17:36
PROVIDERS: Pharmacist; Student in an Organized Health Care Education/Training Program; ADMIT Family Medicine
PROC: 5A09357 Assistance with Respiratory Ventilation, Less than 24 Consecutive Hours, Continuous Positive Airway Pressure (ICD-10-PCS; principal; 2022-03-24)
DX: J69.0 Pneumonitis due to inhalation of food and vomit (principal); I50.23 Acute on chronic systolic (congestive) heart failure; I13.0 Hypertensive heart and chronic kidney disease with heart failure and stage 1 through stage 4 chronic kidney disease, or unspecified chronic kidney disease; E87.1 Hypo-osmolality and hyponatremia; I48.91 Unspecified atrial fibrillation; N18.30 Chronic kidney disease, stage 3 unspecified; E78.5 Hyperlipidemia, unspecified; E03.9 Hypothyroidism, unspecified; I27.20 Pulmonary hypertension, unspecified; I08.1 Rheumatic disorders of both mitral and tricuspid valves; D50.9 Iron deficiency anemia, unspecified; G47.33 Obstructive sleep apnea (adult) (pediatric); Z20.822 Contact with and (suspected) exposure to COVID-19; Z96.653 Presence of artificial knee joint, bilateral; Z79.01 Long term (current) use of anticoagulants; Z95.2 Presence of prosthetic heart valve; Z90.49 Acquired absence of other specified parts of digestive tract; Z98.890 Other specified postprocedural states; Z90.710 Acquired absence of both cervix and uterus; Z79.899 Other long term (current) drug therapy; Z87.891 Personal history of nicotine dependence; Z99.81 Dependence on supplemental oxygen; Z79.2 Long term (current) use of antibiotics
CPT/HCPCS: 0241U; 36415; 71046; 80048; 80053; 83735; 83880; 84484; 85025; 85610; 93005; 93010; 94760; 94761; 96365; 96366; 96375; 96376; 99285-25; A9270; G0378; J0295; J1940